=== PATIENT | male | born 1950 | race Two or more races ===

== ENCOUNTER 2019-03-09 09:28 | Emergency (ER) | payer OTHER ==
[~2019-03-09] VITALS: Ht 172.7 cm; Wt 90.7 kg
[2019-03-09 09:29] VITALS: BP 141/84
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
--- NOTE | 2019-03-09 09:44 | NUR ---
ED Nurse Note: [employer] AT THE BED SIDE.
[2019-03-09] MEDS ORDERED: TRESIBA FL200 UNIT/1 SQ (09:46)
[2019-03-09] MEDS ORDERED: ATORVASTATIN CA40 MG ORAL (09:46)
[2019-03-09] MEDS ORDERED: ENALAPRIL MALEA20 MG ORAL (09:46)
[2019-03-09] MEDS ORDERED: METFORMIN HCL1000 M1 ORAL (09:46)
[2019-03-09] MEDS ORDERED: ASPIR 8181 MG ORAL (09:46)
[2019-03-09] MEDS ORDERED: INVOKANA300 MG PO (09:46)
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
[2019-03-09] MEDS ORDERED: Lidocaine HCl 2% Jelly 6ml Tube TOPIC ONE (10:00)
[2019-03-09] MEDS ORDERED: Acetaminophen 500mg (ES) tab ORAL ONE (10:00)
--- NOTE | 2019-03-09 10:45 | NUR ---
ED Nurse Note: CLEANSED DRIED BLOOD WITH NS/HYDROGEN PEROXIDE.
--- NOTE | 2019-03-09 10:57 | Diagnostic Imaging Report ---
EXAM: CT Head Without Intravenous Contrast CLINICAL HISTORY: AMS TECHNIQUE: Axial computed tomography images of the head brain without intravenous contrast. CTDI is 60 mGy and DLP is 1274.1 mGy-cm. One or more of the following dose reduction techniques were used: automated exposure control, adjustment of the mA and or kV according to patient size, use of iterative reconstruction technique. COMPARISON: No relevant prior studies available. FINDINGS: Brain: No hemorrhage. No edema. Involutional changes with small vessel disease. Ventricles: No ventriculomegaly. Bones joints: No acute fracture. Soft tissues: Unremarkable. Sinuses: No acute sinusitis. Mastoid air cells: No mastoid effusion. IMPRESSION: No acute intracranial process.
--- NOTE | 2019-03-09 11:00 | Diagnostic Imaging Report ---
EXAM: CT Maxillofacial Without Intravenous Contrast CLINICAL HISTORY: AMS TECHNIQUE: Axial computed tomography images of the face without intravenous contrast. CTDI is 25.1 mGy and DLP is 469.4 mGy-cm. One or more of the following dose reduction techniques were used: automated exposure control, adjustment of the mA and or kV according to patient size, use of iterative reconstruction technique. COMPARISON: No relevant prior studies available. FINDINGS: Bones joints: No acute fracture. Soft tissues: Unremarkable. Orbits: Unremarkable. Sinuses: Polypoid sinus mucosal thickening in the maxillary sinuses. Mild thickening and opacification in the frontal ethmoidal sinuses. No evidence of air-fluid levels to suggest acute sinusitis. Dental: Dental related disease. IMPRESSION: Polypoid sinus mucosal thickening in the maxillary sinuses. Mild thickening and opacification in the frontal ethmoidal sinuses. No evidence of air-fluid levels to suggest acute sinusitis.
--- NOTE | 2019-03-09 11:05 | Diagnostic Imaging Report ---
EXAM: CT Pelvis Without Intravenous Contrast CLINICAL HISTORY: AMS TECHNIQUE: Axial computed tomography images of the pelvis without intravenous contrast. CTDI is 39.2 mGy and DLP is 1417.1 mGy-cm. One or more of the following dose reduction techniques were used: automated exposure control, adjustment of the mA and or kV according to patient size, use of iterative reconstruction technique. COMPARISON: No relevant prior studies available. FINDINGS: Bowel: Colonic diverticula without diverticulitis. Intraperitoneal space: Unremarkable. Bladder: Dense fluid in the bladder. Correlate with UA Reproductive: Unremarkable. Bones joints: Subtle fracture of the left acetabulum. No fracture or dislocation of the hips. Soft tissues: Small fat-containing umbilical hernia. Thickening of the left obturator internus and surrounding region. Vasculature: Unremarkable. No lower abdominal aortic aneurysm. IMPRESSION: Subtle fracture of the left acetabulum.
[2019-03-09 11:40] VITALS: BP 148/69
--- NOTE | 2019-03-09 11:41 | NUR ---
ED Nurse Note: INFORMED PT THAT HE HAS A FRACTURE ON HIS LEFT FEMORAL SOCKET AND EDUCATED PT TO STAY ON BED REST/NPO AND AVOID UNECESSARY MOVEMENTS. PT IS AWAR OF HOSPITAL ADMISSION.
--- NOTE | 2019-03-09 11:45 | NUR ---
ED Nurse Note: DR NEWMAN AT THE BED SIDE AND INFORMED PT THAT HE CAN BE CLEARED FOR DISCHARGE WITH NO BEARING OF WEIGHTS ON LEFT HIP X 4 WEEKS AND TO SEE AN SHUTTLER.
[2019-03-09] MEDS ORDERED: NORCO 5-325 TA1 EACH ORAL (11:50)
[2019-03-09] MEDS ORDERED: IBUPROFEN400 MG ORAL (11:50)
[2019-03-09] MEDS ORDERED: Morphine Sulfate 2mg/ml Inj(IV/IM USE ONLY) IVP ONE (12:00)
[2019-03-09 12:02] LABS: ANION GAP 9 mmol/L (5-15); BLOOD UREA NITROGEN 17 mg/dL (7-18); CALCIUM 9.5 MG/DL (8.5-10.1); CARBON DIOXIDE 28 MMOL/L (21-32); CHLORIDE 106 MMOL/L (98-107); CREATININE 0.8 MG/DL (0.55-1.30); POTASSIUM 3.7 MMOL/L (3.5-5.1); SODIUM 143 MMOL/L (136-145)
[2019-03-09 12:03] LABS: BASOPHILS % (AUTO) 1.5 % (0.0-2.0); EOSINOPHILS % (AUTO) 3.7 % (0.0-3.0); HEMATOCRIT 46.8 % (42.0-52.0); LYMPHOCYTES % (AUTO) 17.4 % (20.0-45.0); MEAN CORPUSCULAR VOLUME 89 FL (80-99); MONOCYTES % (AUTO) 9.2 % (1.0-10.0); NEUTROPHILS % (AUTO) 68.3 % (45.0-75.0); PLATELET COUNT 235 K/UL (150-450); RED BLOOD COUNT 5.24 M/UL (4.70-6.10); RED CELL DISTRIBUTION WIDTH 13.1 % (11.6-14.8); WHITE BLOOD COUNT 5.1 K/UL (4.8-10.8)
[2019-03-09 12:06] LABS: ALANINE AMINOTRANSFERASE 31 U/L (12-78); ALBUMIN 3.9 G/DL (3.4-5.0); ALBUMIN/GLOBULIN RATIO 1.1 (1.0-2.7); ALKALINE PHOSPHATASE 116 U/L (46-116); ASPARTATE AMINO TRANSFERASE 15 U/L (15-37); BILIRUBIN,TOTAL 0.7 MG/DL (0.2-1.0)
[2019-03-09 12:08] LABS: INR 0.9 (0.9-1.1)
--- NOTE | 2019-03-09 13:32 | NUR ---
ED Nurse Note: [facility] AT THE BED SIDE FOR XRAY OF LEFT RIB.
[2019-03-09 13:44] VITALS: BP 147/74
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
[2019-03-09 14:06] VITALS: BP 147/74
--- NOTE | 2019-03-09 14:06 | NUR ---
ER DISCHARGE NOTE: Patient is cleared to be discharged per ERMD, pt is aox4, on room air, with stable vital signs. pt was given dc and prescription instructions, pt instructed on how to use his crutches. pt was able to verbalize understanding, pt id band and iv site removed without complications. pt is able to ambulate with steady gait. pt took all belongings and left with his son.
== END 2019-03-09 14:06 | disposition home or self-care (01) ==
LOC: EDBD 09:28 → CANBEDREQ 11:46 → EMR 12:52
DX: S32.402A Unspecified fracture of left acetabulum, initial encounter for closed fracture (principal); M85.80 Other specified disorders of bone density and structure, unspecified site; E11.9 Type 2 diabetes mellitus without complications; I10 Essential (primary) hypertension; S80.212A Abrasion, left knee, initial encounter; S80.211A Abrasion, right knee, initial encounter; S00.83XA Contusion of other part of head, initial encounter; S20.219A Contusion of unspecified front wall of thorax, initial encounter; Y04.8XXA Assault by other bodily force, initial encounter; Y92.9 Unspecified place or not applicable
CPT/HCPCS: 36415; 70450; 70486; 71101; 72192; 80053; 85025; 85610; 85730; 86850; 86900; 86901; 96374; 99284; J2270